=== PATIENT | female | born 1990 | race Hispanic/Latino ===

== ENCOUNTER 2022-05-22 07:52 | Emergency (ER) | payer OTHER ==
[~2022-05-22] VITALS: Ht 154.9 cm; Wt 81.6 kg
[~2022-05-22 07:52] MED LIST: SULF1TAB42 PO
[2022-05-22] MEDS ORDERED: LEVE250T PO (09:13)
[2022-05-22 09:23] VITALS: BP 131/68
== END 2022-05-22 09:29 | disposition home or self-care (01) ==
LOC: EDH 07:52
DX: F13.21 Sedative, hypnotic or anxiolytic dependence, in remission (principal); E11.9 Type 2 diabetes mellitus without complications; E78.5 Hyperlipidemia, unspecified